=== PATIENT | male | born 1955 | race Caucasian/White ===

== ENCOUNTER 2016-09-24 08:44 | Emergency (ER) | payer MEDICAID ==
[2016-09-24] MEDS ORDERED: Sodium Chloride 0.9% 500 ML IV ONE (09:11)
[2016-09-24] MEDS ORDERED: Sodium Chloride 0.9% 1,000 ML ONE (09:39)
[2016-09-24 10:02] LABS: CHLORIDE 97 mmol/L (98-107); POTASSIUM 3.7 mmol/L (3.6-5.2); SODIUM 142 mmol/L (132-148)
[2016-09-24 10:03] LABS: BASO % 0.7 % (0.0-2.0); EOS # 0.2 K/uL (0.0-0.7); EOS % 2.3 % (0.0-4.0); HEMATOCRIT 40.6 % (35.0-51.0); LYMPH # 1.7 K/uL (1.0-4.3); MEAN CELL VOLUME 87.8 fL (80.0-94.0); MEAN CORPUSCULAR HEMOGLOBIN 29.7 pg (27.0-31.0); MEAN CORPUSCULAR HGB CONC 33.8 g/dL (33.0-37.0); MEAN PLATELET VOLUME 8.6 fL (7.2-11.7); MONO # 0.6 K/uL (0.0-0.8); MONO % 9.3 % (0.0-10.0); RED CELL DISTRIBUTION WIDTH 14.8 % (11.5-14.5); WHITE BLOOD COUNT 6.6 K/uL (4.8-10.8)
[2016-09-24 10:04] LABS: ALB/GLOB RATIO 1.2 (1.0-2.1); AST/SGOT 43 U/L (17-59); BILIRUBIN,TOTAL 0.6 mg/dL (0.2-1.3); CARBON DIOXIDE 31 mmol/L (22-30); GFR AFRICAN-AMERICAN > 60; TOTAL PROTEIN 7.2 g/dL (6.3-8.3)
[2016-09-24 10:05] LABS: ALKALINE PHOSPHATASE 52 U/L (38-126); ALT/SGPT 64 U/L (21-72); BLOOD UREA NITROGEN 11 mg/dL (9-20); CALCIUM 8.6 mg/dl (8.6-10.4); GLUCOSE,RANDOM 202 mg/dL (75-110)
--- NOTE | 2016-09-24 10:12 | C.PDOC ---
History Of Present Illness 60 year old patient with PMHx of hypertension, hyperlipidemia, and gastritis, is brought to the ED by ambulance complaining of lightheadedness and sensation of room spinning around that started this morning. Patient states the episode lasted several minutes, and then resolved. He admits to feeling lightheaded intermittently for the past several months, however this morning was the first time he had vertigo like symptoms. Patient is s/p recent admission at [facility] for a rectal bleeding, denies any current bleeding. Prior to his admission, patient was on antibiotics for a sinus infection, but has since stopped taking them. Patient denies headache, visual changes, chest pain, shortness of breath, extremity weakness, sensory changes, slurred speech, facial droop, gait changes , nasal congestion or sinus pressure. Time Seen by Provider: 09/24/16 08:49 Chief Complaint (Nursing): Dizziness/Lightheaded History Per: Patient History/Exam Limitations: no limitations Onset/Duration Of Symptoms: Hrs (this morning) Current Symptoms Are (Timing): Still Present Activity At Onset Of Symptoms: Walking Possible Causative Factor(s): Vertigo, Lightheaded W/Standing Fall Associated With With Symptoms: No Severity: Mild Past Medical History Reviewed: Historical Data, Nursing Documentation, Vital Signs Vital Signs: Last Vital Signs Temp 97.9 F 09/24/16 10:21 Pulse 87 09/24/16 10:21 Resp 18 09/24/16 10:21 BP 108/74 09/24/16 10:21 Pulse Ox 97 09/24/16 10:21 - Medical History PMH: Gastritis, HTN, Hyperlipidemia Surgical History: Endoscopy - [facility] Procedures DRAINAGE OF DESCENDING COLON, ENDO, DIAGN (09/17/16) Family History: States: No Known Family Hx - Social History Hx Tobacco Use: No Hx Alcohol Use: Yes Hx Substance Use: No - Immunization History Hx Tetanus Toxoid Vaccination: No Hx Influenza Vaccination: Yes Hx Pneumococcal Vaccination: No Review Of Systems Except As Marked, All Systems Reviewed And Found Negative. Constitutional: Negative for: Fever, Chills Eyes: Negative for: Vision Change ENT: Negative for: Nose Congestion, Other (sinus pressure) Cardiovascular: Positive for: Light Headedness. Negative for: Chest Pain, Palpitations Respiratory: Negative for: Cough, Shortness of Breath Gastrointestinal: Negative for: Nausea, Vomiting, Abdominal Pain, Diarrhea Neurological: Positive for: Dizziness. Negative for: Weakness, Numbness, Change in Speech, Confusion, Seizures, Altered Mental Status, Headache Physical Exam - Physical Exam Appears: Well, Non-toxic, No Acute Distress Skin: Warm, Dry, No Rash Head: Atraumatic, Normacephalic Eye(s): bilateral: Normal Inspection, PERRL, EOMI Ear(s): Bilateral: Normal Oral Mucosa: Moist Throat: Normal Neck: Normal, Normal ROM, Supple Chest: Symmetrical Cardiovascular: Rhythm Regular Respiratory: Normal Breath Sounds, No Rales, No Rhonchi, No Wheezing Gastrointestinal/Abdominal: Normal Exam, Bowel Sounds, Soft, No Tenderness, No Guarding, No Rebound Back: Normal Inspection Extremity: Normal ROM Extremity: Bilateral: Atraumatic, Normal Color And Temperature Neurological/Psych: Oriented x3, Normal Speech, Normal Cognition, Normal Cranial Nerves, No Cerebellar Signs, Normal Motor, Normal Sensation Gait: Steady ED Course And Treatment - Laboratory Results Result Diagrams: 09/24/16 09:49 09/24/16 09:49 O2 Sat by Pulse Oximetry: 96 (RA) Pulse Ox Interpretation: Normal Progress Note: Plan: Blood work, Urinalysis ordered and reviewed. Patient given IV NS bolus. -Reassess and disposition Reevaluation Time: 10:20 Reassessment Condition: Improved (Patient reassessed, is resting comfortably and currently aymptomatic. Blood work unremarkable, and patient is well appearing with normal vitals. Patient given Rx for meclizine, and he was instructed to follow up with ENT within 1 week, and PMD in 1-2 days. Patient understands he should return to ED if symptoms worsen.) Disposition Counseled Patient/Family Regarding: Studies Performed, Diagnosis, Need For Followup, Rx Given - Disposition Referrals: Shane Deras MD [Staff Provider] - Zuleyma Gresham MD [Staff Provider] - Disposition: HOME/ ROUTINE Disposition Time: 10:20 Condition: STABLE Additional Instructions: FOLLOW UP WITH DR DERAS TOMORROW SCHEDULED FOLLOW UP WITH YOUR DOCTOR IN 1-2 DAYS RETURN TO ER IF SYMPTOMS WORSEN Prescriptions: Meclizine [Meclizine*] 25 mg PO Q6 #25 tab Instructions: Benign Paroxysmal Positional Vertigo (ED) Forms: General Discharge Instructions Print Language: URDU - POA Present On Arrival: None - Clinical Impression Clinical Impression: Dizziness, Benign positional vertigo - Scribe Statement The provider has reviewed the documentation as recorded by the Scribe Rose Vargas Provider Attestation: All medical record entries made by the Scribe were at my direction and personally dictated by me. I have reviewed the chart and agree that the record accurately reflects my personal performance of the history, physical exam, medical decision making, and the department course for this patient. I have also personally directed, reviewed, and agree with the discharge instructions and disposition.
[2016-09-24 10:22] VITALS: BP 108/74; PULSE 87; RESP 18; TEMP 97.9
[2016-10-09 10:59] VITALS: O2SAT 96
== END 2016-09-24 11:02 | disposition home or self-care (01) ==
LOC: C.ER 08:44
DX: H81.10 Benign paroxysmal vertigo, unspecified ear (principal)

== ENCOUNTER 2017-02-14 12:54 | Emergency (ER) | payer MEDICAID ==
[2017-02-14 13:06] VITALS: RESP 18; TEMP 97.6; O2SAT 96
[2017-02-14 14:20] LABS: BASO % 0.6 % (0.0-2.0); EOS # 0.1 K/uL (0.0-0.7); EOS % 2.8 % (0.0-4.0); HEMOGLOBIN 13.7 g/dL (12.0-18.0); LYMPH # 1.9 K/uL (1.0-4.3); LYMPH % 37.2 % (20.0-40.0); MEAN CELL VOLUME 87.7 fL (80.0-94.0); MEAN CORPUSCULAR HGB CONC 33.1 g/dL (33.0-37.0); MEAN PLATELET VOLUME 8.9 fL (7.2-11.7); MONO # 0.5 K/uL (0.0-0.8); MONO % 10.5 % (0.0-10.0); NEUT # 2.4 K/uL (1.8-7.0); NEUT % 48.9 % (50.0-75.0); NRBC % 0.1 % (0.0-2.0); RBC 4.72 Mil/uL (4.40-5.90); RED CELL DISTRIBUTION WIDTH 14.9 % (11.5-14.5)
[2017-02-14 14:28] LABS: ALBUMIN 3.7 g/dL (3.5-5.0)
[2017-02-14 14:31] LABS: ALB/GLOB RATIO 1.3 (1.0-2.1); ALT/SGPT 40 U/L (21-72); AST/SGOT 33 U/L (17-59); BLOOD UREA NITROGEN 9 mg/dL (9-20); GFR AFRICAN-AMERICAN > 60; GFR NON-AFRICAN AMERICAN > 60; LIPASE 68 U/L (23-300)
[2017-02-14 14:32] LABS: CALCIUM 8.7 mg/dl (8.6-10.4)
[2017-02-14 15:18] LABS: SQUAMOUS EPITHIAL < 1 /hpf (0-5); URINE BILIRUBIN NEGATIVE (NEGATIVE); URINE BLOOD NEGATIVE (NEGATIVE); URINE CLARITY Clear (Clear); URINE COLOR Yellow (YELLOW); URINE GLUCOSE (UA) 1+ mg/dL (Normal); URINE LEUKOCYTE ESTERASE NEG Leu/uL (Negative); URINE NITRATE NEGATIVE (NEGATIVE); URINE PROTEIN NEGATIVE (NEGATIVE); URINE UROBILINOGEN NORMAL mg/dL (0.2-1.0)
--- NOTE | 2017-02-14 15:42 | RAD ---
HISTORY: SOB COMPARISON: None. TECHNIQUE: Chest, one view. FINDINGS: Examination limited by habitus. LUNGS: No focal consolidation. Please note that chest x-ray has limited sensitivity for the detection of pulmonary masses. PLEURA: No significant pleural effusion identified. No definite pneumothorax . CARDIOVASCULAR: Heart size appears top normal. Atherosclerotic calcifications of the aorta. OSSEOUS STRUCTURES: Degenerative changes of the spine. VISUALIZED UPPER ABDOMEN: Unremarkable. OTHER FINDINGS: None. IMPRESSION: No focal consolidation, significant pleural effusion, or definite pneumothorax identified.
[2017-02-14 16:04] LABS: PROTHROMBIN TIME 11.3 SECONDS (9.7-12.2)
--- NOTE | 2017-02-14 16:38 | US ---
HISTORY: RUQ Pain, ascites? COMPARISON: CT of the abdomen and pelvis with contrast performed 08/13/13 TECHNIQUE: Sonographic evaluation of the abdomen. FINDINGS: Examination limited by bowel gas LIVER: Not well-visualized. Measures approximately 22 cm in sagittal dimension. Echogenic liver may be seen in setting of hepatic parenchymal disease or fatty infiltration. No focal hepatic mass identified. The main portal vein appears patent with normal directional flow. No intrahepatic bile duct dilatation. GALLBLADDER: No gallstones. No gallbladder wall thickening. Negative sonographic Zayas's sign as assessed by the mri special procedures technologist. COMMON BILE DUCT: Measures 6 mm. PANCREAS: Not well visualized. RIGHT KIDNEY: Measures 13.1 x 6.0 x 6.3cm. No obstructing calculus or hydronephrosis identified. LEFT KIDNEY: Measures 13.1 x 6.0 x 6.3 cm. No obstructing calculus or hydronephrosis identified. 1.3 x 0.7 x 1.4 cm anechoic avascular left renal lesion compatible with a cyst. SPLEEN: Measures approximately 12.9 cm. AORTA: Not well-visualized. IVC: Not well-visualized. OTHER FINDINGS: None. IMPRESSION: Examination limited by bowel gas. Hepatomegaly. Echogenic liver may be seen in setting of hepatic parenchymal disease or fatty infiltration. 1.3 x 0.7 x 1.4 cm anechoic avascular left renal lesion compatible with a cyst.
--- NOTE | 2017-02-14 16:51 | C.PDOC ---
History Of Present Illness 61 y/o male presents to the ED with complaints RUQ pain, increasing abdominal size and difficulty breathing for the past couple days. Pt states laying down makes symptoms worse. He also reports bilateral leg swelling. Denies fever, chills, vomiting, diarrhea, chest pain or any other complaints. Time Seen by Provider: 02/14/17 14:13 Chief Complaint (Nursing): Abdominal Pain History Per: Patient History/Exam Limitations: no limitations Onset/Duration Of Symptoms: Days Current Symptoms Are (Timing): Still Present Severity: Moderate Location Of Pain/Discomfort: RUQ Radiation Of Pain To:: None Quality Of Discomfort: "Pain" Associated Symptoms: denies: Fever, Chills, Nausea, Vomiting, Diarrhea, Chest Pain Exacerbating Factors: Other (laying down) Alleviating Factors: None Recent travel outside of the [place]: No Past Medical History Reviewed: Historical Data, Nursing Documentation, Vital Signs Vital Signs: Last Vital Signs Temp 97.6 F 02/14/17 13:02 Pulse 90 02/14/17 18:49 Resp 18 02/14/17 18:49 BP 153/86 H 02/14/17 18:49 Pulse Ox 96 02/14/17 18:54 - Medical History PMH: Gastritis, HTN, Hyperlipidemia Surgical History: Endoscopy - [facility] Procedures DRAINAGE OF DESCENDING COLON, ENDO, DIAGN (09/17/16) Family History: States: Unknown Family Hx - Social History Hx Tobacco Use: No Hx Alcohol Use: Yes Hx Substance Use: No - Immunization History Hx Tetanus Toxoid Vaccination: No Hx Influenza Vaccination: No Hx Pneumococcal Vaccination: No Review Of Systems Except As Marked, All Systems Reviewed And Found Negative. Constitutional: Negative for: Fever, Chills Cardiovascular: Negative for: Chest Pain Respiratory: Positive for: Shortness of Breath Gastrointestinal: Positive for: Abdominal Pain, Other (increasing abdominal girth). Negative for: Vomiting, Diarrhea Physical Exam - Physical Exam Appears: Non-toxic, No Acute Distress, Other (obese) Skin: Warm, Dry, No Rash Head: Atraumatic, Normacephalic Neck: Normal, Normal ROM, Supple Chest: Symmetrical Cardiovascular: Rhythm Regular, No Murmur Respiratory: Normal Breath Sounds, No Accessory Muscle Use, No Rales, No Rhonchi , No Wheezing Gastrointestinal/Abdominal: Soft, Tenderness (RUQ), No Guarding, No Rebound, Other (questionable abdominal distention and ascites) Extremity: Normal ROM, No Calf Tenderness, Capillary Refill (<2 seconds), Swelling (bilateral lower leg swelling) Pulses: Left Dorsalis Pedis: Normal, Right Dorsalis Pedis: Normal Neurological/Psych: Oriented x3, Normal Speech, Normal Cognition, Normal Motor, Normal Sensation ED Course And Treatment - Laboratory Results Result Diagrams: 02/14/17 14:17 02/14/17 14:17 O2 Sat by Pulse Oximetry: 96 (room air) Pulse Ox Interpretation: Normal - Other Rad CXR X-Ray: Viewed By Me, Read By Radiologist Interpretation: Accession No. : [id number]. Patient Name / ID : NICOLE LOCKHART / [id number]. Exam Date : 02/14/2017 15:25:23 ( Approved ). Study Comment : Sex / Age : M / 61Y. Creator : Elizabeth So MD. Dictator : Elizabeth So MD. Industrial Chemist : Grain Trimmer : Elizabeth So MD. Approver2 : Report Date : 02/14/2017 15:40:38. My Comment : . HISTORY: SOB. COMPARISON: None. TECHNIQUE: Chest, one view. FINDINGS : Examination limited by habitus. LUNGS: No focal consolidation. Please note that chest x-ray has limited sensitivity for the detection of pulmonary masses. PLEURA: No significant pleural effusion identified. No definite pneumothorax . CARDIOVASCULAR: Heart size appears top normal. Atherosclerotic calcifications of the aorta. OSSEOUS STRUCTURES: Degenerative changes of the spine. VISUALIZED UPPER ABDOMEN: Unremarkable. OTHER FINDINGS: None. IMPRESSION: No focal consolidation, significant pleural effusion, or definite pneumothorax identified. - CT Scan/US US abdomen Other Rad Studies (CT/US): Read By Radiologist, Radiology Report Reviewed CT/US Interpretation: Accession No. : [id number]. Patient Name / ID : NICOLE LOCKHART / [id number]. Exam Date : 02/14/2017 15:47:23 ( Approved ). Study Comment : Sex / Age : M / 61Y. Creator : Elizabeth So MD. Dictator : Elizabeth So MD. Industrial Chemist : Grain Trimmer : Elizabeth So MD. Approver2 : Report Date : 02/14/2017 16:36:32. My Comment : . HISTORY: RUQ Pain, ascites? COMPARISON: CT of the abdomen and pelvis with contrast performed 08/13/13. TECHNIQUE: Sonographic evaluation of the abdomen. FINDINGS: Examination limited by bowel gas. LIVER: Not well- visualized. Measures approximately 22 cm in sagittal dimension. Echogenic liver may be seen in setting of hepatic parenchymal disease or fatty infiltration. No focal hepatic mass identified. The main portal vein appears patent with normal directional flow. No intrahepatic bile duct dilatation. GALLBLADDER: No gallstones. No gallbladder wall thickening. Negative sonographic Zayas's sign as assessed by the studio set up worker. COMMON BILE DUCT: Measures 6 mm. PANCREAS: Not well visualized. RIGHT KIDNEY: Measures 13.1 x 6.0 x 6.3cm. No obstructing calculus or hydronephrosis identified. LEFT KIDNEY : Measures 13.1 x 6.0 x 6.3 cm. No obstructing calculus or hydronephrosis identified. 1.3 x 0.7 x 1.4 cm anechoic avascular left renal lesion compatible with a cyst. SPLEEN: Measures approximately 12.9 cm. AORTA: Not well- visualized. IVC: Not well-visualized. OTHER FINDINGS: None. IMPRESSION: Examination limited by bowel gas. Hepatomegaly. Echogenic liver may be seen in setting of hepatic parenchymal disease or fatty infiltration. 1.3 x 0.7 x 1.4 cm anechoic avascular left renal lesion compatible with a cyst. CT abdomen Other Rad Studies (CT/US): Read By Radiologist, Radiology Report Reviewed CT/US Interpretation: Accession No. : [id number]. Patient Name / ID : NICOLE LOCKHART / [id number]. Exam Date : 02/14/2017 18:01:41 ( Approved ). Study Comment : Sex / Age : M / 61Y. Creator : Elizabeth So MD. Dictator : Elizabeth So MD. Industrial Chemist : Grain Trimmer : Elizabeth So MD. Approver2 : Report Date : 02/14/2017 18:23:50. My Comment : . PROCEDURE: CT Abdomen and Pelvis without Oral or IV contrast. HISTORY: right flank pain. COMPARISON: Abdominal ultrasound performed 02/14/17, CT of the abdomen and pelvis with contrast performed 08/13/13. TECHNIQUE: Contiguous axial images of the abdomen and pelvis. No oral or IV contrast administered. Coronal and Sagittal reformats generated and reviewed. Radiation dose: Total exam DLP = 1357.45 MGy-cm. This CT exam was performed using one or more of the following dose reduction techniques: Automated exposure control, adjustment of the mA and/or kV according to patient size, and/or use of iterative reconstruction technique. FINDINGS: There is limited evaluation of the solid organs without the administration of IV contrast. LOWER THORAX: No visible consolidation, pleural effusion, or pneumothorax. LIVER: Hepatomegaly. Hypoattenuation of the liver compatible with hepatic steatosis. GALLBLADDER AND BILE DUCTS: Decompressed gallbladder. PANCREAS: Unremarkable unenhanced appearance. SPLEEN: Unremarkable unenhanced appearance. ADRENALS: Unremarkable unenhanced appearance. KIDNEYS AND URETERS: No hydronephrosis or obstructing renal calculus. BLADDER: The urinary bladder appears unremarkable. REPRODUCTIVE: The prostate gland measures approximately 3.6 x 4.1 cm. APPENDIX: The appendix appears within normal limits of caliber. No secondary signs of acute appendicitis. BOWEL: The stomach is nondistended. Lack of oral contrast limits evaluation for bowel pathology. The bowel loops appear within normal limits of caliber without evidence of intestinal obstruction. PERITONEUM: No significant free fluid. No definite free air. LYMPH NODES: No bulky lymphadenopathy identified. VASCULATURE: Infrarenal abdominal aortic aneurysm measures approximately 3.4 cm in AP dimension. BONES : Degenerative changes of the spine. Vacuum disc phenomenon at L4-L5 and L5- S1. OTHER FINDINGS: None. IMPRESSION: Hepatomegaly. Hepatic steatosis. Infrarenal abdominal aortic aneurysm measures approximately 3.4 cm in AP dimension. Progress Note: Plan: EKG, labs, CXR, UA, US abd, IV fluids. case was d/w patient 's PMD who instructed to d/c patient home with aluminum welder and GI follow up. She also wants patient to follow up in her office. patient feels comfortable going home, asked to give Rx for Flonase for nasal congestion. Disposition - Disposition Referrals: Zuleyma Gresham MD [Staff Provider] - Disposition: HOME/ ROUTINE Disposition Time: 18:52 Condition: STABLE Additional Instructions: Follow up with PMD, Towing Pilot and Wig Dresser within 1-2 days. Return to ED if feel worse. Prescriptions: Dicyclomine [Bentyl] 20 mg PO TID #30 tab Fluticasone Nasal [Flonase] 1 spr NS BID #1 spr traMADol [Ultram] 50 mg PO Q6 #20 tab Instructions: Abdominal Pain (ED) - Clinical Impression Clinical Impression: Abdominal pain - PA / VP PUBLIC RELATIONS / Resident Statement MD/DO has reviewed & agrees with the documentation as recorded. - Scribe Statement The provider has reviewed the documentation as recorded by the Josephineibgisela Dunn All medical record entries made by the Trang were at my direction and personally dictated by me. I have reviewed the chart and agree that the record accurately reflects my personal performance of the history, physical exam, medical decision making, and the department course for this patient. I have also personally directed, reviewed, and agree with the discharge instructions and disposition.
[2017-02-14 17:00] LABS: AMYLASE 92 U/L (30-110); MAGNESIUM 1.7 mg/dL (1.6-2.3)
[2017-02-14 17:09] LABS: B-TYPE NATRIURETIC PEPTIDE 30.6 pg/mL (0-900); CK-MB 0.94 ng/mL (0.0-3.38)
--- NOTE | 2017-02-14 18:25 | CT ---
PROCEDURE: CT Abdomen and Pelvis without Oral or IV contrast. HISTORY: right flank pain COMPARISON: Abdominal ultrasound performed 02/14/17, CT of the abdomen and pelvis with contrast performed 08/13/13 TECHNIQUE: Contiguous axial images of the abdomen and pelvis. No oral or IV contrast administered. Coronal and Sagittal reformats generated and reviewed. Radiation dose: Total exam DLP = 1357.45 MGy-cm. This CT exam was performed using one or more of the following dose reduction techniques: Automated exposure control, adjustment of the mA and/or kV according to patient size, and/or use of iterative reconstruction technique. FINDINGS: There is limited evaluation of the solid organs without the administration of IV contrast. LOWER THORAX: No visible consolidation, pleural effusion, or pneumothorax. LIVER: Hepatomegaly. Hypoattenuation of the liver compatible with hepatic steatosis. GALLBLADDER AND BILE DUCTS: Decompressed gallbladder. PANCREAS: Unremarkable unenhanced appearance. SPLEEN: Unremarkable unenhanced appearance. ADRENALS: Unremarkable unenhanced appearance. KIDNEYS AND URETERS: No hydronephrosis or obstructing renal calculus. BLADDER: The urinary bladder appears unremarkable. REPRODUCTIVE: The prostate gland measures approximately 3.6 x 4.1 cm. APPENDIX: The appendix appears within normal limits of caliber. No secondary signs of acute appendicitis. BOWEL: The stomach is nondistended. Lack of oral contrast limits evaluation for bowel pathology. The bowel loops appear within normal limits of caliber without evidence of intestinal obstruction. PERITONEUM: No significant free fluid. No definite free air. LYMPH NODES: No bulky lymphadenopathy identified. VASCULATURE: Infrarenal abdominal aortic aneurysm measures approximately 3.4 cm in AP dimension. BONES: Degenerative changes of the spine. Vacuum disc phenomenon at L4-L5 and L5-S1. OTHER FINDINGS: None. IMPRESSION: Hepatomegaly. Hepatic steatosis. Infrarenal abdominal aortic aneurysm measures approximately 3.4 cm in AP dimension.
[2017-02-14 18:50] VITALS: BP 153/86; PULSE 90
--- NOTE | 2017-02-16 09:06 | CARD ---
APPROVED REPORT EKG Measurement Heart [id number] <Conclusion> Normal sinus rhythm Minimal voltage criteria for LVH, may be normal variant Borderline ECG
== END 2017-02-14 19:06 | disposition home or self-care (01) ==
LOC: C.ER 12:54
DX: R10.9 Unspecified abdominal pain (principal); I10 Essential (primary) hypertension; E78.5 Hyperlipidemia, unspecified; Z87.891 Personal history of nicotine dependence

== ENCOUNTER 2017-02-18 08:06 | Emergency (ER) | payer MEDICAID ==
[2017-02-18 08:13] VITALS: BMI 35.4
[2017-02-18 08:15] VITALS: RESP 20
[2017-02-18] MEDS ORDERED: Sodium Chloride 0.9% 500 ML IV ONE (08:28)
[2017-02-18] MEDS ORDERED: Sodium Chloride 0.9% 1,000 ML ONE (08:38)
--- NOTE | 2017-02-18 08:47 | RAD ---
PROCEDURE: CHEST RADIOGRAPH, 1 VIEW HISTORY: Abdominal pain COMPARISON: None available. FINDINGS: LUNGS: Mild venous congestion. Right hilar prominence. Patchy increased markings at the left lung base. PLEURA: No pneumothorax or pleural fluid seen. CARDIOVASCULAR: Normal. OSSEOUS STRUCTURES: No significant abnormalities. VISUALIZED UPPER ABDOMEN: Normal. OTHER FINDINGS: None. IMPRESSION: Mild venous congestion. Right hilar prominence. Patchy increased markings at the left lung base.
--- NOTE | 2017-02-18 08:57 | C.PDOC ---
History Of Present Illness 61 y/o male, with PMHx of HTN, hyperlipidemia, presents to the ED for evaluation of persistent RUQ abdominal pain for the last week. Pt was seen here last week, with negative CT scan, and ultrasound study. Notes that he has an appointment with agriculturist on 02/21/17, but states his pain worsened which prompted ED visit today. Otherwise, denies any n/v/d, back pain, fever, or chills. Time Seen by Provider: 02/18/17 08:17 Chief Complaint (Nursing): Abdominal Pain History Per: Patient History/Exam Limitations: no limitations Onset/Duration Of Symptoms: Days (1 week) Current Symptoms Are (Timing): Still Present Location Of Pain/Discomfort: RUQ Radiation Of Pain To:: None Quality Of Discomfort: "Pain" Associated Symptoms: denies: Fever, Chills, Nausea, Vomiting, Diarrhea, Loss Of Appetite, Back Pain, Chest Pain, Constipation, Urinary Symptoms Exacerbating Factors: None Alleviating Factors: None Recent travel outside of the [place]: No Additional History Per: Patient Past Medical History Reviewed: Historical Data, Nursing Documentation, Vital Signs Vital Signs: Last Vital Signs Temp 98.1 F 02/18/17 12:29 Pulse 86 02/18/17 12:29 Resp 20 02/18/17 12:29 BP 137/86 02/18/17 12:29 Pulse Ox 96 02/18/17 14:23 - Medical History PMH: Gastritis, HTN, Hyperlipidemia Denies: Chronic Kidney Disease Surgical History: Endoscopy - [facility] Procedures DRAINAGE OF DESCENDING COLON, ENDO, DIAGN (09/17/16) Family History: States: Unknown Family Hx - Social History Hx Tobacco Use: No Hx Alcohol Use: Yes Hx Substance Use: No - Immunization History Hx Tetanus Toxoid Vaccination: No Hx Influenza Vaccination: No Hx Pneumococcal Vaccination: No Review Of Systems Except As Marked, All Systems Reviewed And Found Negative. Constitutional: Negative for: Fever, Chills Gastrointestinal: Positive for: Abdominal Pain (RUQ). Negative for: Nausea, Vomiting, Diarrhea Genitourinary: Negative for: Dysuria, Frequency, Hematuria Musculoskeletal: Negative for: Back Pain Skin: Negative for: Rash Physical Exam - Physical Exam Appears: Non-toxic, No Acute Distress Skin: Normal Color, Warm, Dry Head: Atraumatic, Normacephalic Neck: Supple Cardiovascular: Rhythm Regular, No Murmur Respiratory: Normal Breath Sounds, No Rales, No Rhonchi, No Wheezing Gastrointestinal/Abdominal: Soft, Tenderness (mild RUQ), Distention (mild), No Guarding, No Rebound Extremity: Bilateral: Atraumatic Neurological/Psych: Oriented x3, Normal Speech ED Course And Treatment - Laboratory Results Result Diagrams: 02/18/17 09:02 02/18/17 09:02 O2 Sat by Pulse Oximetry: 96 (RA) Pulse Ox Interpretation: Normal - CT Scan/US Abd & pelvis CT Other Rad Studies (CT/US): Read By Radiologist, Radiology Report Reviewed CT/US Interpretation: FINDINGS: LOWER THORAX: Unremarkable. LIVER: Hepatic steatosis. No focal masses. No intrahepatic bile duct dilatation or perihepatic ascites. GALLBLADDER AND BILE DUCTS: Unremarkable. PANCREAS: Unremarkable. No gross lesion or ductal dilatation. SPLEEN: Top-normal spleen. Orthogonal measurements 7.4 x 12.8 cm. ADRENALS: Unremarkable. No mass. KIDNEYS AND URETERS: Unremarkable. No hydronephrosis. No solid mass. VASCULATURE: Unremarkable. No aortic aneurysm. Atherosclerotic disease identified in a non aneurysmal proximal abdominal aorta. BOWEL: Diverticulosis without an acute inflammatory component or other associated pathologic process. APPENDIX: Normal appendix. PERITONEUM: Unremarkable. No free fluid. No free air. LYMPH NODES: Unremarkable. No enlarged lymph nodes. BLADDER: Unremarkable. REPRODUCTIVE: Unremarkable. BONES: No acute fracture. OTHER FINDINGS: None. IMPRESSION: No significant or acute findings to account for/ related to the clinical presentation. Additional benign and/or incidental findings described above. Progress Note: EKG, CXR, blood work, urinalysis ordered and reviewed. Pt was given Toradol, and IV fluids. Medical Decision Making Medical Decision Making: ekg nsr 89 vs ectopic atrial [address] twave changes nromal intervals. Abd & pelvis CT scan shows no interval changes. Spoke with Dr. Colindres who suggest outpatient follow up. Pt instructed to keep GI appointment for next week. pt sleeping innad, on reassessment. Disposition - Disposition Disposition: HOME/ ROUTINE Disposition Time: 02:00 Condition: GOOD Additional Instructions: please follow up with your doctor. return to er with worsening symptoms or concerns. please see specialsit. that you have scheduled Instructions: Acute Abdominal Pain (ED) Forms: [employer] (Burundian) - Clinical Impression Clinical Impression: Abdominal pain - Scribe Statement The provider has reviewed the documentation as recorded by the Scribe Klaus Vargas All medical record entries made by the Scribe were at my direction and personally dictated by me. I have reviewed the chart and agree that the record accurately reflects my personal performance of the history, physical exam, medical decision making, and the department course for this patient. I have also personally directed, reviewed, and agree with the discharge instructions and disposition.
[2017-02-18 09:08] LABS: BASO # 0.1 K/uL (0.0-0.2); BASO % 0.8 % (0.0-2.0); EOS # 0.2 K/uL (0.0-0.7); EOS % 2.5 % (0.0-4.0); HEMATOCRIT 41.3 % (35.0-51.0); LYMPH # 1.7 K/uL (1.0-4.3); LYMPH % 25.1 % (20.0-40.0); MEAN CELL VOLUME 88.5 fL (80.0-94.0); MEAN CORPUSCULAR HEMOGLOBIN 28.6 pg (27.0-31.0); MEAN CORPUSCULAR HGB CONC 32.3 g/dL (33.0-37.0); MEAN PLATELET VOLUME 9.2 fL (7.2-11.7); MONO # 0.6 K/uL (0.0-0.8); MONO % 8.7 % (0.0-10.0); NRBC % 0.1 % (0.0-2.0); RED CELL DISTRIBUTION WIDTH 15.3 % (11.5-14.5); WHITE BLOOD COUNT 6.9 K/uL (4.8-10.8)
[2017-02-18 09:13] LABS: CHLORIDE 97 mmol/L (98-107)
[2017-02-18 09:14] LABS: SODIUM 139 mmol/L (132-148)
[2017-02-18 09:16] LABS: ALB/GLOB RATIO 1.3 (1.0-2.1); ALKALINE PHOSPHATASE 59 U/L (38-126); AST/SGOT 55 U/L (17-59); BILIRUBIN,TOTAL 0.8 mg/dL (0.2-1.3); BLOOD UREA NITROGEN 11 mg/dL (9-20); CARBON DIOXIDE 28 mmol/L (22-30); GFR AFRICAN-AMERICAN > 60; TOTAL PROTEIN 6.9 g/dL (6.3-8.3)
[2017-02-18 09:17] LABS: ALT/SGPT 50 U/L (21-72); CALCIUM 8.6 mg/dl (8.6-10.4); GLUCOSE,RANDOM 205 mg/dL (75-110); RBC URINE 3 /hpf (0-3); URINE BILIRUBIN NEGATIVE (NEGATIVE); URINE BLOOD 1+ (NEGATIVE); URINE COLOR Yellow (YELLOW); URINE GLUCOSE (UA) NORMAL (Normal); URINE KETONE NEGATIVE (NEGATIVE); URINE LEUKOCYTE ESTERASE NEG Leu/uL (Negative); URINE PROTEIN NEGATIVE (NEGATIVE); URINE UROBILINOGEN NORMAL mg/dL (0.2-1.0); WBC URINE < 1 /hpf (0-5)
[2017-02-18] MEDS ORDERED: Iohexol 240 (50 ml) PO STA (09:27)
[2017-02-18] MEDS ORDERED: Iohexol 240 (50 ml) ONE (09:33)
[2017-02-18] MEDS ORDERED: Iodixanol 320 MG/ML 100 ML BOTTLE IV ONE (10:50)
--- NOTE | 2017-02-18 12:23 | CT ---
PROCEDURE: CT Abdomen and Pelvis with contrast HISTORY: abd pain COMPARISON: None. TECHNIQUE: Contrast dose: 100 cc Omnipaque 350 Radiation dose: Total exam DLP = 1340.71 mGy-cm. This CT exam was performed using one or more of the following dose reduction techniques: Automated exposure control, adjustment of the mA and/or kV according to patient size, and/or use of iterative reconstruction technique. FINDINGS: LOWER THORAX: Unremarkable. LIVER: Hepatic steatosis. No focal masses. No intrahepatic bile duct dilatation or perihepatic ascites. GALLBLADDER AND BILE DUCTS: Unremarkable. PANCREAS: Unremarkable. No gross lesion or ductal dilatation. SPLEEN: Top-normal spleen. Orthogonal measurements 7.4 x 12.8 cm ADRENALS: Unremarkable. No mass. KIDNEYS AND URETERS: Unremarkable. No hydronephrosis. No solid mass. VASCULATURE: Unremarkable. No aortic aneurysm. Atherosclerotic disease identified in a non aneurysmal proximal abdominal aorta. BOWEL: Diverticulosis without an acute inflammatory component or other associated pathologic process. APPENDIX: Normal appendix. PERITONEUM: Unremarkable. No free fluid. No free air. LYMPH NODES: Unremarkable. No enlarged lymph nodes. BLADDER: Unremarkable. REPRODUCTIVE: Unremarkable. BONES: No acute fracture. OTHER FINDINGS: None. IMPRESSION: No significant or acute findings to account for/ related to the clinical presentation. Additional benign and/or incidental findings described above.
[2017-02-18 12:30] VITALS: BP 137/86; PULSE 86; TEMP 98.1
[2017-02-18 14:23] VITALS: O2SAT 96
--- NOTE | 2017-02-21 15:05 | CARD ---
APPROVED REPORT EKG Measurement Heart [id number] CT [id number] <Conclusion> Suspect arm lead reversal, interpretation assumes no reversal Unusual P axis, possible ectopic atrial rhythm Right superior axis deviation Pulmonary disease pattern Abnormal ECG
== END 2017-02-18 12:38 | disposition home or self-care (01) ==
LOC: C.ER 08:06
DX: R10.11 Right upper quadrant pain (principal); E78.5 Hyperlipidemia, unspecified; I10 Essential (primary) hypertension
CPT/HCPCS: 71010; 74177; 80053; 81001; 83690; 83880; 84484; 85025; 85610; 85730; 93005; 96361; 96374; 99285; J1885; J7040; Q9966; Q9967

== ENCOUNTER 2017-08-01 16:52 | Emergency (ER) | payer MEDICAID ==
[2017-08-01 16:52] VITALS: BMI 35.4
[2017-08-01 17:08] VITALS: RESP 18
--- NOTE | 2017-08-01 18:24 | C.PDOC ---
History Of Present Illness 61 year old male presents to the ED for evaluation of mild cervical tapezius discomfort which has been intermittent for around 1 week. He finds transient relief with Motrin. Otherwise, he denies fever, chills, chest pain, palpitations , nausea, vomiting, extremity numbness/weakness. Time Seen by Provider: 08/01/17 17:16 Chief Complaint (Nursing): Weakness/Neurological Deficit History Per: Patient History/Exam Limitations: no limitations Onset/Duration Of Symptoms: Intermittent Episodes (1 week) Current Symptoms Are (Timing): Still Present Additional History Per: Patient Past Medical History Reviewed: Historical Data, Nursing Documentation, Vital Signs Vital Signs: Last Vital Signs Temp 98.1 F 08/01/17 18:53 Pulse 90 08/01/17 18:53 Resp 18 08/01/17 18:53 BP 134/79 08/01/17 18:53 Pulse Ox 95 08/01/17 20:06 - Medical History PMH: Gastritis, HTN, Hyperlipidemia Denies: Chronic Kidney Disease Surgical History: Endoscopy - [facility] Procedures DRAINAGE OF DESCENDING COLON, ENDO, DIAGN (09/17/16) Family History: States: Unknown Family Hx - Social History Hx Tobacco Use: No Hx Alcohol Use: Yes Hx Substance Use: No - Immunization History Hx Tetanus Toxoid Vaccination: No Hx Influenza Vaccination: No Hx Pneumococcal Vaccination: No Review Of Systems Constitutional: Negative for: Fever, Chills Cardiovascular: Negative for: Chest Pain, Palpitations Gastrointestinal: Negative for: Nausea, Vomiting Musculoskeletal: Positive for: Other (left cervical trapezius pain ) Neurological: Negative for: Weakness, Numbness Physical Exam - Physical Exam Appears: Non-toxic, No Acute Distress, Other (obese) Skin: Normal Color, Warm, Dry Head: Atraumatic, Normacephalic Eye(s): bilateral: Normal Inspection Ear(s): Bilateral: Normal Nose: Normal, No Discharge Oral Mucosa: Moist Throat: Normal, No Erythema, No Exudate Neck: Normal ROM, Supple, Other (mild tenderness to left trapezius neck ) Chest: Symmetrical, No Deformity, No Tenderness Cardiovascular: Rhythm Regular, No Murmur Respiratory: Normal Breath Sounds, No Rales, No Rhonchi, No Wheezing Extremity: Normal ROM, Capillary Refill (less than 2 seconds ) Neurological/Psych: Oriented x3, Normal Speech, Normal Cognition Gait: Steady ED Course And Treatment O2 Sat by Pulse Oximetry: 95 (on RA) Pulse Ox Interpretation: Normal Progress Note: EKG ordered and reviewed. Tylenol PO administered. Medical Decision Making Medical Decision Making: mild L cervical strain, no neurological signs. Educated and reassured. Disposition Doctor Will See Patient In The: Office Counseled Patient/Family Regarding: Studies Performed, Diagnosis - Disposition Referrals: Zuleyma Gresham MD [Staff Provider] - Disposition: HOME/ ROUTINE Disposition Time: 18:24 Condition: GOOD Additional Instructions: tylenol or motrin as needed for L neck muscular discomfort ice packs 1/2 hour per hour. Avoid heat therapies/hot showers- makes muscle strain worse Follow-up with Dr. Mancini as needed. Instructions: Cervical Strain (DC) Forms: [employer] (Eritrean) - Clinical Impression Clinical Impression: Cervical strain - Scribe Statement The provider has reviewed the documentation as recorded by the Scribe (Ashli Vargas) Provider Attestation: All medical record entries made by the Scribe were at my direction and personally dictated by me. I have reviewed the chart and agree that the record accurately reflects my personal performance of the history, physical exam, medical decision making, and the department course for this patient. I have also personally directed, reviewed, and agree with the discharge instructions and disposition.
[2017-08-01 18:54] VITALS: BP 134/79; PULSE 90; TEMP 98.1
[2017-08-01 20:05] VITALS: O2SAT 95
--- NOTE | 2017-08-03 23:09 | CARD ---
APPROVED REPORT EKG Measurement Heart [id number] <Conclusion> Normal sinus rhythm Left axis deviation Moderate voltage criteria for LVH, may be normal variant Abnormal ECG
== END 2017-08-01 18:54 | disposition home or self-care (01) ==
LOC: C.ER 16:52
DX: S16.1XXA Strain of muscle, fascia and tendon at neck level, initial encounter (principal); X58.XXXA Exposure to other specified factors, initial encounter; Y92.9 Unspecified place or not applicable

== ENCOUNTER 2017-09-04 05:32 | Observation (INO) | payer MEDICAID ==
[2017-09-04 05:33] VITALS: BMI 35.4
[2017-09-04] MEDS ORDERED: Albuterol-Ipratrop 3 mg / 0.5 (3 ml) UD INH STA (06:00)
[2017-09-04] MEDS ORDERED: Albuterol-Ipratrop 3 mg / 0.5 (3 ml) UD ONE ×3 (06:04→22:30)
--- NOTE | 2017-09-04 06:36 | C.PDOC ---
History Of Present Illness patient with worsening fever, chills, chest congestion, productive cough, over the last 3-4 days. Speaking in 5-6 word sentences. Tolerating po no chest pain Time Seen by Provider: 09/04/17 06:35 Chief Complaint (Nursing): Fever History Per: Patient History/Exam Limitations: no limitations Onset/Duration Of Symptoms: Days (3) Current Symptoms Are (Timing): Still Present Location Of Pain: Diffuse Myalgias, Headache, Other Sick Contacts (Context): None Associated Symptoms: Fever, Chills, Cough, Sputum, Nasal Congestion Ear Symptoms: Bilateral: None Severity: Moderate Pain Scale Rating Of: 4 Recent travel outside of the [place]: No Additional History Per: Patient Past Medical History Reviewed: Historical Data, Nursing Documentation, Vital Signs Vital Signs: Last Vital Signs Temp 101.8 F H 09/04/17 05:54 Pulse 96 H 09/04/17 06:05 Resp 20 09/04/17 05:54 BP 110/75 09/04/17 05:54 Pulse Ox 98 09/04/17 06:35 - Medical History PMH: Gastritis, HTN, Hyperlipidemia Denies: Chronic Kidney Disease Surgical History: Endoscopy - [facility] Procedures DRAINAGE OF DESCENDING COLON, ENDO, DIAGN (09/17/16) Family History: States: No Known Family Hx - Social History Hx Tobacco Use: No Hx Alcohol Use: Yes Hx Substance Use: No - Immunization History Hx Tetanus Toxoid Vaccination: No Hx Influenza Vaccination: No Hx Pneumococcal Vaccination: No Review Of Systems Constitutional: Positive for: Fever, Chills, Sweats ENT: Positive for: Nose Congestion. Negative for: Ear Pain, Throat Pain Cardiovascular: Negative for: Chest Pain, Palpitations Respiratory: Positive for: Cough, Shortness of Breath, Wheezing Gastrointestinal: Negative for: Nausea, Vomiting Musculoskeletal: Negative for: Back Pain Skin: Negative for: Rash Neurological: Negative for: Weakness Psych: Negative for: Anxiety Physical Exam - Physical Exam Appears: Non-toxic Skin: Warm, Dry Head: Normacephalic Eye(s): bilateral: Normal Inspection Nose: Discharge (clear) Oral Mucosa: Moist Throat: No Erythema Neck: Supple Chest: Symmetrical Cardiovascular: Rhythm Regular Respiratory: No Rales, Rhonchi, Wheezing (few) Gastrointestinal/Abdominal: Soft, No Tenderness, No Distention Back: No CVA Tenderness Extremity: Normal ROM Extremity: Bilateral: Atraumatic Neurological/Psych: Oriented x3 Gait: Steady ED Course And Treatment O2 Sat by Pulse Oximetry: 98 Disposition Counseled Patient/Family Regarding: Studies Performed, Diagnosis - Disposition Disposition Time: 06:35 Condition: FAIR Forms: [employer] (Swedish) - Clinical Impression Clinical Impression: Fever, Influenza-like illness Physician Patient Turnover Patient Signed Over To: Alexia Desir Handoff Comments: pending labs , re evaluation and disposition
[2017-09-04] MEDS ORDERED: Sodium Chloride 0.9% 1,000 ML IV ONE (06:38)
[2017-09-04 06:54] LABS: VENOUS BLOOD GAS BASE EXCESS 2.4 mmol/L (0.0-2.0); VENOUS BLOOD GAS PCO2 51 mmHg (40-60); VENOUS BLOOD GAS PO2 37 mm/Hg (30-55); VENOUS BLOOD PH 7.36 (7.32-7.43)
[2017-09-04] MEDS: Albuterol-Ipratrop 3 mg / 0.5 (3 ml) UD IH SCH ×3 (06:55→07:32)
[2017-09-04 07:00] LABS: BASO % 1.3 % (0.0-2.0); EOS # 0.2 K/uL (0.0-0.7); EOS % 5.7 % (0.0-4.0); HEMOGLOBIN 13.9 g/dL (12.0-18.0); LYMPH # 1.3 K/uL (1.0-4.3); LYMPH % 34.3 % (20.0-40.0); MEAN CELL VOLUME 88.6 fL (80.0-94.0); MEAN CORPUSCULAR HEMOGLOBIN 29.2 pg (27.0-31.0); MEAN CORPUSCULAR HGB CONC 32.9 g/dL (33.0-37.0); MEAN PLATELET VOLUME 9.2 fL (7.2-11.7); MONO # 0.7 K/uL (0.0-0.8); MONO % 17.6 % (0.0-10.0); NEUT # 1.5 K/uL (1.8-7.0); NEUT % 41.1 % (50.0-75.0); NRBC % 0.2 % (0.0-2.0); RBC 4.76 Mil/uL (4.40-5.90); RED CELL DISTRIBUTION WIDTH 15.6 % (11.5-14.5); WHITE BLOOD COUNT 3.7 K/uL (4.8-10.8)
[2017-09-04] MEDS ORDERED: Sodium Chloride 0.9% 1,000 ML ONE (07:00)
[2017-09-04 07:28] LABS: ALB/GLOB RATIO 1.3 (1.0-2.1); ALBUMIN 4.1 g/dL (3.5-5.0); ALT/SGPT 48 U/L (21-72); AST/SGOT 39 U/L (17-59); BLOOD UREA NITROGEN 22 mg/dL (9-20); CALCIUM 8.8 mg/dl (8.6-10.4); GFR AFRICAN-AMERICAN > 60; GFR NON-AFRICAN AMERICAN > 60
[2017-09-04] MEDS ORDERED: Azithromycin 500 MG in Sodium Chloride 0.9% 250 ML IVPB STA (07:34)
[2017-09-04] MEDS ORDERED: cefTRIAXone IV 1 gm in Dextros 50 ML IVPB ONE (07:34)
--- NOTE | 2017-09-04 09:01 | RAD ---
HISTORY: SOB COMPARISON: Chest x-ray performed 02/18/17 TECHNIQUE: Chest, one view. FINDINGS: Examination limited by habitus. LUNGS: Patchy opacity at the left lung base may reflect pneumonia. Right hilar prominence. Mild pulmonary venous congestion. Please note that chest x-ray has limited sensitivity for the detection of pulmonary masses. PLEURA: No significant pleural effusion identified. No definite pneumothorax . CARDIOVASCULAR: Borderline cardiomegaly. OSSEOUS STRUCTURES: Degenerative changes. VISUALIZED UPPER ABDOMEN: Unremarkable. OTHER FINDINGS: None. IMPRESSION: Patchy opacity at the left lung base may reflect pneumonia. Mild pulmonary venous congestion. Right hilar prominence.
--- NOTE | 2017-09-04 09:02 | RAD ---
HISTORY: cough COMPARISON: Chest x-ray performed earlier the same day. TECHNIQUE: Chest PA and lateral FINDINGS: LUNGS: Mild to moderate pulmonary venous congestion. Patchy opacity at the left lung base may reflect atelectasis or pneumonia. Right hilar prominence. Please note that chest x-ray has limited sensitivity for the detection of pulmonary masses. PLEURA: No significant pleural effusion identified. No definite pneumothorax . CARDIOVASCULAR: Mild cardiomegaly. OSSEOUS STRUCTURES: Degenerative changes. VISUALIZED UPPER ABDOMEN: Unremarkable. OTHER FINDINGS: None. IMPRESSION: Mild to moderate pulmonary venous congestion. Patchy opacity at the left lung base may reflect atelectasis or pneumonia. Right hilar prominence.
[2017-09-04] MEDS ORDERED: Promethazine 12.5 mg/10 ml Syrup PO PRN (11:49)
[2017-09-04] MEDS: Pantoprazole 40 mg EC Tab PO SCH (12:57)
[2017-09-04] MEDS ORDERED: Pantoprazole 40 mg EC Tab PO ONE (12:59)
[2017-09-04] MEDS ORDERED: Iodixanol 320 MG/ML 100 ML BOTTLE IV ONE (13:34)
--- NOTE | 2017-09-04 14:33 | CP.PCM.PN ---
Subjective - Date & Time of Evaluation Date of Evaluation: 09/04/17 Time of Evaluation: 13:00 - Subjective Subjective: H&P dictated #[id number] Objective - Vital Signs/Intake and Output Vital Signs (last 24 hours): Temp Pulse Resp BP Pulse Ox 100.4 F H 85 17 100/51 L 93 L 09/04/17 07:45 09/04/17 09:24 09/04/17 09:24 09/04/17 09:24 09/04/17 10:08 - Medications Medications: Current Medications Acetaminophen (Tylenol 325mg Tab) 650 mg PO Q6 PRN PRN Reason: Fever >100.4 F Albuterol/Ipratropium (Duoneb 3 Mg/0.5 Mg (3 Ml) Ud) 3 ml INH RQ6 HECTOR Sodium Chloride (Sodium Chloride 0.9%) 1,000 mls @ 100 mls/hr IV .Q10H ONE Stop: 09/04/17 16:37 Last Admin: 09/04/17 07:02 Dose: 100 mls/hr Sodium Chloride (Sodium Chloride 0.9%) 1,000 mls @ 100 mls/hr IV .Q10H HECTOR Montelukast Sodium (Singulair) 10 mg PO DAILY [facility] Last Admin: 09/04/17 12:57 Dose: 10 mg Oseltamivir Phosphate (Tamiflu Cap) 75 mg PO BID [facility] Stop: 09/09/17 11:45 Pantoprazole Sodium (Protonix Ec Tab) 40 mg PO DAILY [facility] Last Admin: 09/04/17 12:57 Dose: 40 mg Promethazine HCl (Phenergan Syrup) 12.5 mg PO Q6 PRN PRN Reason: Cough Rosuvastatin Calcium (Crestor) 5 mg PO HS HECTOR - Labs Labs: 09/04/17 06:57 09/04/17 06:57
--- NOTE | 2017-09-04 14:49 | CT ---
CT chest with IV contrast Indication: r/o pneumonia, hilar prominence Technique: Contiguous axial images were obtained through the chest with intravenous contrast enhancement. Sagittal and coronal reconstructions were generated and reviewed. This CT exam was performed using 1 or more of the following dose reduction techniques: Automated exposure control, adjustment of the MAA and/or kV according to patient size, and/or use of iterative reconstruction technique. IV Contrast: 100 mL Visipaque Radiation dose (DLP): 761.82 MGy-cm. Comparison: Chest x-ray performed 09/04/17 Findings: Visualized portions of the inferior thyroid gland appear unremarkable. The mediastinal and hilar vascular structures appear within normal limits. Heart size appears top normal. Coronary artery calcifications. Sub cm prevascular/mediastinal lymph nodes, nonspecific. 9 mm right hilar lymph node, nonspecific. Emphysematous changes. Mild bibasilar atelectasis. No pleural effusion. No pneumothorax. Numerous right sided pulmonary nodules. For example: 4 mm right upper lobe pulmonary nodule (series 3, image 38). 2 mm subpleural right upper lobe nodule (image 43). 5 mm posterior right upper lobe nodule (image 42) 4 mm right lower lobe nodule (image 59). 5 mm right middle lobe nodule (image 59). 3 mm right middle lobe nodule (image 70) Partially imaged upper abdomen: Hepatic steatosis. Hepatomegaly. Degenerative changes of the spine. Impression: Sub cm prevascular/mediastinal lymph nodes, nonspecific. 9 mm right hilar lymph node, nonspecific. Emphysematous changes. Mild bibasilar atelectasis. Numerous right sided pulmonary nodules measuring up to 5 mm. According to 2017 Fleischner criteria, if the patient is low risk, no routine follow-up is recommended. If the patient is high risk, optional CT at 12 months is recommended. Partially imaged upper abdomen: Hepatic steatosis. Hepatomegaly.
[2017-09-04] MEDS: Sodium Chloride 0.9% 1,000 ML IV SCH ×2 (14:51→22:39)
[2017-09-04 23:08] LABS: URINE BILIRUBIN NEGATIVE (NEGATIVE); URINE BLOOD NEGATIVE (NEGATIVE); URINE CLARITY Clear (Clear); URINE COLOR Yellow (YELLOW); URINE GLUCOSE (UA) NORMAL (Normal); URINE LEUKOCYTE ESTERASE NEG Leu/uL (Negative); URINE NITRATE NEGATIVE (NEGATIVE); URINE PROTEIN NEGATIVE (NEGATIVE); URINE URIC ACID CRYSTALS OCC /hpf (<OCC)
--- NOTE | 2017-09-05 02:29 | HP ---
CHIEF COMPLAINT: Fever, cold, cough, sore throat, progressively getting worse over the past 3-4 days. HISTORY OF PRESENT ILLNESS: Mr. Devlin is a 61-year-old male with past medical history of hypertension, diabetes mellitus, hyperlipidemia, GERD, allergic rhinitis, COPD, noncompliant with his diabetic medications, came into the ED with complaints of three-day history of cold, cough, sore throat, generalized body aches, feeling feverish. With these symptoms, the patient was evaluated by Pulmonary, Dr. Leal, and he was given cough medicine. His symptoms got worse and he came into the ED. In the ED, he was found to be having influenza positive and abnormal chest x-ray. His blood pressures were low and the patient is being admitted for further management. When I examined, the patient is feeling slightly better. Denies any headache, dizziness. Complaining of feeling nauseous, cold. Denies any chest pain or shortness of breath. Denies any vomiting. Denies any abdominal pain, diarrhea or constipation. Denies any urinary complaints. Denies any leg pains or leg cramps. PAST MEDICAL HISTORY: As described diabetes mellitus, hypertension, hyperlipidemia, GERD, allergic rhinitis, COPD. PAST SURGICAL HISTORY: Denies any past surgical history. FAMILY HISTORY: Acute respiratory failure in father who at age 57. Mother from hepatitis at age 78. Brother at age 58 secondary to pancreatitis, another brother is living in his 60s. Sister has history of high blood pressure . PERSONAL HISTORY: He lives alone, unemployed. SOCIAL HISTORY: He is an ex-smoker. Denies smoking or any drug abuse. Drinks alcohol socially. REVIEW OF SYSTEMS: As described in history of present illness. All other systems reviewed and were found to be negative. ALLERGIES: NO KNOWN DRUG ALLERGIES. MEDICATIONS: Include Singulair 10 mg daily, Zyrtec 10 mg daily, Ventolin, Norvasc 10 mg daily, valsartan 80 mg daily, Protonix 40 mg daily, Lipitor 10 mg p.o. at bedtime. PHYSICAL EXAMINATION: GENERAL: A middle-aged male, lying in bed, in no acute distress. VITAL SIGNS: Blood pressure 100/51, pulse 85, respiration 17, temperature 100.4, T-max is 101.8, O2 sats 93% on room air. HEENT: Pupils equal, round, reacting to light and accommodation. Extraocular muscles are intact. No icterus. No pallor. No oral thrush. Positive pharyngeal congestion. No nasal congestion. NECK: Supple. No JVD. LUNGS: Bilateral vesicular breath sounds. Right basal rhonchi heard. CVS: S1 and S2 present. Regular. ABDOMEN: Soft, nontender. Bowel sounds present. No guarding. No rigidity. No rebound tenderness noted. [employer]: Alert, awake, oriented x3. No focal deficits noted. EXTREMITIES: No edema. Palpable peripheral pulses. LABORATORY DATA: Labs done from ED, WBC 3.7, hemoglobin 13.9, hematocrit 42.2, platelets 144. Sodium 139, potassium 4.1, chloride 98, bicarb 29, BUN 22, creatinine 1.2, glucose 103, calcium 8.8. Total bilirubin 0.6, AST 39, ALT 48, alkaline phosphatase 49, total protein 7.2, albumin 4.1. Influenza B positive. Chest x-ray consistent with mild to moderate pulmonary venous congestion, patchy opacity at the left lung base may reflect atelectasis or pneumonia, right hilar prominence. CT scan of the chest shows subcentimeter perivascular mediastinal lymph nodes, nonspecific, 9 mm right hilar lymph node, nonspecific, emphysematous changes, mild bibasilar atelectases, numerous right sided pulmonary nodules measuring up to 5 mm. Partially imaged upper abdomen shows hepatic steatosis and hepatomegaly. ASSESSMENT: A middle-aged male with past medical history of hypertension, diabetes mellitus, gastritis, hyperlipidemia, gastroesophageal reflux disease, chronic obstructive pulmonary disease, allergic rhinitis, admitted for flu-like symptoms, progressive worsening of cough, hypotension and hypoxia. 1. Influenza B positive. 2. Abnormal CT with multiple pulmonary nodules. No obvious infiltrate noted on CT chest. 3. Hypotension. 4. Hypoxia. 5. History of hypertension, now with low blood pressures. 6. History of diabetes mellitus, noncompliant with medications, not taking any medications. 7. Chronic obstructive pulmonary disease, stable. 8. Gastroesophageal reflux disease, stable. PLAN: The patient is being admitted to the medical floor. We will give Tamiflu 75 mg p.o. b.i.d. for 5 days. The patient received Rocephin and Zithromax in the ED. We will hold on antibiotics for now, give Phenergan as needed for cough. We will give DuoNeb. We will hold antihypertensive medications for now. We will repeat labs in the morning. We will add further recommendation as his clinical course progresses. Zuleyma Gresham MD
[2017-09-05] MEDS: Albuterol-Ipratrop 3 mg / 0.5 (3 ml) UD INH SCH ×2 (03:02→10:17)
[2017-09-05] MEDS ORDERED: Albuterol-Ipratrop 3 mg / 0.5 (3 ml) UD ONE ×3 (03:09→17:31)
[2017-09-05 06:29] LABS: BASO % 0.4 % (0.0-2.0); EOS # 0.2 K/uL (0.0-0.7); EOS % 4.3 % (0.0-4.0); HEMOGLOBIN 12.7 g/dL (12.0-18.0); LYMPH # 1.3 K/uL (1.0-4.3); LYMPH % 29.8 % (20.0-40.0); MEAN CELL VOLUME 88.5 fL (80.0-94.0); MEAN CORPUSCULAR HEMOGLOBIN 28.9 pg (27.0-31.0); MEAN CORPUSCULAR HGB CONC 32.7 g/dL (33.0-37.0); MEAN PLATELET VOLUME 9.2 fL (7.2-11.7); MONO # 0.5 K/uL (0.0-0.8); MONO % 11.7 % (0.0-10.0); NEUT # 2.4 K/uL (1.8-7.0); NEUT % 53.8 % (50.0-75.0); NRBC % 0.1 % (0.0-2.0); RBC 4.38 Mil/uL (4.40-5.90); RED CELL DISTRIBUTION WIDTH 15.8 % (11.5-14.5); WHITE BLOOD COUNT 4.4 K/uL (4.8-10.8)
[2017-09-05 06:41] LABS: ALB/GLOB RATIO 1.3 (1.0-2.1); ALBUMIN 3.8 g/dL (3.5-5.0); ALT/SGPT 80 U/L (21-72); AST/SGOT 62 U/L (17-59); BLOOD UREA NITROGEN 18 mg/dL (9-20); CALCIUM 7.9 mg/dl (8.6-10.4); GFR AFRICAN-AMERICAN > 60; GFR NON-AFRICAN AMERICAN > 60; HDL CHOLESTEROL 20 mg/dL (30-70)
[2017-09-05 06:52] LABS: LDL CHOLESTEROL 55 mg/dL (0-129)
[2017-09-05] MEDS: Sodium Chloride 0.9% 1,000 ML IV SCH ×2 (09:47→18:15)
[2017-09-05] MEDS: Pantoprazole 40 mg EC Tab PO SCH (10:08)
--- NOTE | 2017-09-05 10:57 | CP.PCM.PN ---
Subjective - Date & Time of Evaluation Date of Evaluation: 09/05/17 Time of Evaluation: 12:00 - Subjective Subjective: Progress note dictated # [id number] Objective - Vital Signs/Intake and Output Vital Signs (last 24 hours): Temp Pulse Resp BP Pulse Ox 98.6 F 73 14 114/63 98 09/05/17 04:24 09/05/17 10:12 09/05/17 10:12 09/05/17 10:12 09/05/17 10:12 - Medications Medications: Current Medications Acetaminophen (Tylenol 325mg Tab) 650 mg PO Q6 PRN PRN Reason: Fever >100.4 F Albuterol/Ipratropium (Duoneb 3 Mg/0.5 Mg (3 Ml) Ud) 3 ml INH RQ6 [facility] Last Admin: 09/05/17 10:17 Dose: 3 ml Sodium Chloride (Sodium Chloride 0.9%) 1,000 mls @ 100 mls/hr IV .Q10H [facility] Last Admin: 09/05/17 09:47 Dose: 100 mls/hr Montelukast Sodium (Singulair) 10 mg PO DAILY [facility] Last Admin: 09/05/17 10:08 Dose: 10 mg Oseltamivir Phosphate (Tamiflu Cap) 75 mg PO BID [facility] Stop: 09/09/17 11:45 Last Admin: 09/05/17 10:08 Dose: 75 mg Pantoprazole Sodium (Protonix Ec Tab) 40 mg PO DAILY [facility] Last Admin: 09/05/17 10:08 Dose: 40 mg Promethazine HCl (Phenergan Syrup) 12.5 mg PO Q6 PRN PRN Reason: Cough Rosuvastatin Calcium (Crestor) 5 mg PO HS [facility] Last Admin: 09/04/17 22:39 Dose: 5 mg - Labs Labs: 09/05/17 06:20 09/05/17 06:20
[2017-09-05] MEDS ORDERED: Pneumococcal 23-Valent Vaccine IM ONE (13:19)
--- NOTE | 2017-09-05 16:06 | CP.PCM.CON ---
History of Present Illness - History of Present Illness History of Present Illness: Patient is a 61 y.o M with PMH of HTN and HLD presented with fever, productive cough and SOB that started 3-4 days ago. Patient is a former smoker and quit 7- 8 years ago. Patient denies history of COPD. Review of Systems - Review of Systems All systems: reviewed and no additional remarkable complaints except (cough, chills) Past Patient History - Infectious Disease Hx of Infectious Diseases: None - Past Medical History & Family History Past Medical History?: Yes - Past Social History Smoking Status: Former Smoker - CARDIAC Hx Hypertension: Yes - PULMONARY Hx Respiratory Disorders: No - NEUROLOGICAL Hx Neurological Disorder: No - HEENT Hx HEENT Problems: No - RENAL Hx Chronic Kidney Disease: No - ENDOCRINE/METABOLIC Hx Endocrine Disorders: No Hx Diabetes Mellitus Type 2: Yes - HEMATOLOGICAL/ONCOLOGICAL Hx Blood Disorders: No - INTEGUMENTARY Hx Dermatological Problems: No - MUSCULOSKELETAL/RHEUMATOLOGICAL Hx Musculoskeletal Disorders: No Hx Falls: No - GASTROINTESTINAL Hx Gastritis: Yes - GENITOURINARY/GYNECOLOGICAL Hx Genitourinary Disorders: No - PSYCHIATRIC Hx Substance Use: No - SURGICAL HISTORY Hx Surgeries: Yes Other/Comment: colonoscopy - ANESTHESIA Hx Anesthesia: Yes Hx Anesthesia Reactions: No Meds Allergies/Adverse Reactions: Allergies Allergy/AdvReac Type Severity Reaction Status Date / Time No Known Allergies Allergy Verified 02/18/17 08:12 - Medications Medications: Current Medications Acetaminophen (Tylenol 325mg Tab) 650 mg PO Q6 PRN PRN Reason: Fever >100.4 F Albuterol/Ipratropium (Duoneb 3 Mg/0.5 Mg (3 Ml) Ud) 3 ml INH RQ6 [facility] Last Admin: 09/05/17 10:17 Dose: 3 ml Sodium Chloride (Sodium Chloride 0.9%) 1,000 mls @ 100 mls/hr IV .Q10H [facility] Last Admin: 09/05/17 09:47 Dose: 100 mls/hr Montelukast Sodium (Singulair) 10 mg PO DAILY [facility] Last Admin: 09/05/17 10:08 Dose: 10 mg Oseltamivir Phosphate (Tamiflu Cap) 75 mg PO BID [facility] Stop: 09/09/17 11:45 Last Admin: 09/05/17 10:08 Dose: 75 mg Pantoprazole Sodium (Protonix Ec Tab) 40 mg PO DAILY [facility] Last Admin: 09/05/17 10:08 Dose: 40 mg Pneumococcal Polyvalent Vaccine (Pneumovax 23 Vaccine) 0.5 ml IM .ONCE ONE Stop: 09/06/17 10:01 Promethazine HCl (Phenergan Syrup) 12.5 mg PO Q6 [facility] Rosuvastatin Calcium (Crestor) 5 mg PO HS [facility] Last Admin: 09/04/17 22:39 Dose: 5 mg Physical Exam - Head Exam Head Exam: ATRAUMATIC, NORMOCEPHALIC - Eye Exam Eye Exam: Normal appearance - ENT Exam ENT Exam: Mucous Membranes Moist - Neck Exam Neck exam: Positive for: Normal Inspection - Respiratory Exam Respiratory Exam: Rhonchi - GI/Abdominal Exam GI & Abdominal Exam: Diminished Bowel Sounds Results - Vital Signs Recent Vital Signs: Last Vital Signs Temp 98.6 F 09/05/17 04:24 Pulse 73 09/05/17 10:12 Resp 14 09/05/17 10:12 BP 114/63 09/05/17 10:12 Pulse Ox 98 09/05/17 10:12 - Labs Result Diagrams: 09/05/17 06:20 09/05/17 06:20 Labs: Laboratory Results - last 24 hr 09/04/17 09/05/17 09/05/17 22:55 06:20 06:20 WBC 4.4 L RBC 4.38 L Hgb 12.7 Hct 38.7 MCV 88.5 MCH 28.9 MCHC 32.7 L RDW 15.8 H Plt Count 127 L MPV 9.2 Neut % (Auto) 53.8 Lymph % (Auto) 29.8 [place] % (Auto) 11.7 H Eos % (Auto) 4.3 H Baso % (Auto) 0.4 Neut # (Auto) 2.4 Lymph # (Auto) 1.3 [place] # (Auto) 0.5 Eos # (Auto) 0.2 Baso # (Auto) 0.0 Sodium 137 Potassium 4.2 Chloride 102 Carbon Dioxide 26 Anion Gap 13 BUN 18 Creatinine 0.9 Est GFR ( Amer) > 60 Est GFR (Non-Af Amer) > 60 Random Glucose 123 H Hemoglobin A1c Calcium 7.9 L Total Bilirubin 0.5 AST 62 H D ALT 80 H D Alkaline Phosphatase 49 Total Protein 6.9 Albumin 3.8 Globulin 3.1 Albumin/Globulin Ratio 1.3 Triglycerides 117 D Cholesterol 101 LDL Cholesterol Direct 55 HDL Cholesterol 20 L Urine Color Yellow Urine Clarity Clear Urine pH 5.0 Ur Specific [place] 1.051 H Urine Protein Negative Urine Glucose (UA) Normal Urine Ketones Negative Urine Blood Negative Urine Nitrate Negative Urine Bilirubin Negative Urine Urobilinogen 2.0 Ur Leukocyte Esterase Neg Urine WBC (Auto) 1 Urine RBC (Auto) 8 H Uric Acid Crystals Occ H 09/05/17 06:20 WBC RBC Hgb Hct MCV MCH MCHC RDW Plt Count MPV Neut % (Auto) Lymph % (Auto) [place] % (Auto) Eos % (Auto) Baso % (Auto) Neut # (Auto) Lymph # (Auto) [place] # (Auto) Eos # (Auto) Baso # (Auto) Sodium Potassium Chloride Carbon Dioxide Anion Gap BUN Creatinine Est GFR ( Amer) Est GFR (Non-Af Amer) Random Glucose Hemoglobin A1c 6.6 H Calcium Total Bilirubin AST ALT Alkaline Phosphatase Total Protein Albumin Globulin Albumin/Globulin Ratio Triglycerides Cholesterol LDL Cholesterol Direct HDL Cholesterol Urine Color Urine Clarity Urine pH Ur Specific [place] Urine Protein Urine Glucose (UA) Urine Ketones Urine Blood Urine Nitrate Urine Bilirubin Urine Urobilinogen Ur Leukocyte Esterase Urine WBC (Auto) Urine RBC (Auto) Uric Acid Crystals Assessment & Plan (1) Influenza-like illness Status: Acute Comment: Patient is a 61 y.o M with PMH of HTN and HLD presented with fever, productive cough and SOB most likely due to influenza. -Tested positive for Influenza B. -Tamiflu 75 mg po BID for 5 days. -CT chest showed sub cm prevascular/mediastinal lymph nodes, nonspecific. 9mm right hilar lymph node, nonspecific. Empysematous changes, mild bibasilar atelectasis. Numerous right sided pulmonary nodules measuring up to 5mm. -Phenergan for cough (2) COPD (chronic obstructive pulmonary disease) Status: Acute Comment: patient with long history of smoking underlying COPD cannot be ruled out. Continue nebulizer treatment and pulmonary function test as out pt
[2017-09-05] MEDS: Promethazine 12.5 mg/10 ml Syrup PO SCH (18:37)
--- NOTE | 2017-09-05 21:17 | CARD ---
APPROVED REPORT EKG Measurement Heart [id number] <Conclusion> Normal sinus rhythm Left axis deviation Minimal voltage criteria for LVH, may be normal variant Abnormal ECG
--- NOTE | 2017-09-05 23:57 | PN ---
DATE: 09/05/2017 SUBJECTIVE: The patient was seen and examined at bedside. The patient is still complaining of generalized body aches and persistent cough and not feeling well. Denies any new complaints. PHYSICAL EXAMINATION: GENERAL: Middle-aged male, lying in bed, in no acute distress. VITAL SIGNS: Blood pressure 125/77, pulse 84, respirations 16, temperature 98.6 degrees Fahrenheit, and O2 saturations 98% on room air. HEENT: Pupils are equal, round, and reacting to light and accommodation. Extraocular muscles intact. No icterus. No pallor. No oral thrush. No pharyngeal congestion. NECK: Supple. No JVD. LUNGS: Bilateral vesicular breath sounds, bilateral basal rhonchi heard. CVS: S1 and S2 present. Regular. ABDOMEN: Soft, nontender. Bowel sounds present. No guarding. No rigidity. No rebound tenderness noted. BOBBIN DUMPER: Alert, awake, oriented x3. No focal deficits noted. EXTREMITIES: No edema, palpable peripheral pulses. MEDICATIONS: Include Tylenol 325 mg as needed, DuoNebs, Singulair 10 mg daily, Tamiflu 75 mg b.i.d., Protonix 40 mg daily, Phenergan cough syrup as needed, Crestor, and normal saline at 100 mL an hour. LABS: From this morning, WBC 4.4, hemoglobin 12.7, hematocrit 38.7, platelets 127. Sodium 137, potassium 4.2, chloride 102, bicarb 26, BUN 18, creatinine 0.9, glucose 123, hemoglobin A1c is 6.6, calcium 7.9, AST 62, ALT 80, alkaline phosphatase 49, total protein 6.9, albumin 3.8. Legionella negative. Blood cultures pending so far. ASSESSMENT AND PLAN: Middle-aged male with history of hypertension, diabetes mellitus, chronic obstructive pulmonary disease, gastroesophageal reflux disease, noncompliant with his medications, admitted for influenza B positive with viral syndrome and abnormal CT of the chest consistent with multiple pulmonary nodules and emphysematous changes. We will continue with Tamiflu and nebulizer treatments and Phenergan for cough. We will continue with his home medication. Pulmonary consult appreciated. We will add further recommendation as his clinical course progresses. Zuleyma Gresham MD [facility] # [id number]
[2017-09-06] MEDS: Promethazine 12.5 mg/10 ml Syrup PO SCH ×3 (00:45→11:25)
[2017-09-06] MEDS: Albuterol-Ipratrop 3 mg / 0.5 (3 ml) UD INH SCH ×2 (01:14→08:07)
[2017-09-06 02:05] VITALS: RESP 20
[2017-09-06] MEDS: Sodium Chloride 0.9% 1,000 ML IV SCH (02:35)
[2017-09-06 08:13] VITALS: BP 138/84; TEMP 97.8
[2017-09-06 08:38] VITALS: O2SAT 96
[2017-09-06] MEDS: Pantoprazole 40 mg EC Tab PO SCH (09:52)
--- NOTE | 2017-09-06 09:55 | CP.PCM.PN ---
Subjective - Date & Time of Evaluation Date of Evaluation: 09/06/17 Time of Evaluation: 10:00 - Subjective Subjective: Discharge summary dictated # [id number] Objective - Vital Signs/Intake and Output Vital Signs (last 24 hours): Temp Pulse Resp BP Pulse Ox 97.8 F 78 20 138/84 96 09/06/17 07:00 09/06/17 07:00 09/06/17 07:00 09/06/17 07:00 09/06/17 08:35 Intake and Output: 09/06/17 09/06/17 06:59 18:59 Intake Total 1600 Output Total 2300 Balance -700 - Medications Medications: Current Medications Acetaminophen (Tylenol 325mg Tab) 650 mg PO Q6 PRN PRN Reason: Fever >100.4 F Albuterol/Ipratropium (Duoneb 3 Mg/0.5 Mg (3 Ml) Ud) 3 ml INH RQ6 [facility] Last Admin: 09/06/17 08:07 Dose: 3 ml Sodium Chloride (Sodium Chloride 0.9%) 1,000 mls @ 100 mls/hr IV .Q10H [facility] Last Admin: 09/06/17 02:35 Dose: 100 mls/hr Montelukast Sodium (Singulair) 10 mg PO DAILY [facility] Last Admin: 09/06/17 09:52 Dose: 10 mg Oseltamivir Phosphate (Tamiflu Cap) 75 mg PO BID [facility] Stop: 09/09/17 11:45 Last Admin: 09/06/17 09:52 Dose: 75 mg Pantoprazole Sodium (Protonix Ec Tab) 40 mg PO DAILY [facility] Last Admin: 09/06/17 09:52 Dose: 40 mg Pneumococcal Polyvalent Vaccine (Pneumovax 23 Vaccine) 0.5 ml IM .ONCE ONE Stop: 09/06/17 10:01 Promethazine HCl (Phenergan Syrup) 12.5 mg PO Q6 [facility] Last Admin: 09/06/17 05:49 Dose: 12.5 mg Rosuvastatin Calcium (Crestor) 5 mg PO HS [facility] Last Admin: 09/05/17 22:03 Dose: 5 mg - Labs Labs: 09/05/17 06:20 09/05/17 06:20
[2017-09-06] MEDS ORDERED: Pneumococcal 23-Valent Vaccine IM ONE (10:00)
[2017-09-06 11:52] VITALS: PULSE 89
--- NOTE | 2017-09-06 15:55 | CP.PCM.PN ---
Subjective - Date & Time of Evaluation Date of Evaluation: 09/06/17 Time of Evaluation: 10:20 - Subjective Subjective: Patient was seen and evaluated. He states that generalized body aches has been improving. Patient reports decreased shortness of breath and cough. He has been tolerating diet, but would like less "sugary food" because he is pre-diabetic. He denies fever, chills, nausea, vomiting. Influenza-like illness: -Tested positive for Influenza B -Tamiflu 75 mg po BID for 5 days -CT chest from 09/04 showed sub cm prevascular/mediastinal lymph nodes, nonspecific. 9mm right hilar lymph node, nonspecific. Empysematous changes, mild bibasilar atelectasis. Numerous right sided pulmonary nodules measuring up to 5mm -Phenergan for cough COPD: -CT chest showed emphysematous changes, mild bibasilar atelectasis -Continue Duoneb treatments -PFT as outpatient Objective - Vital Signs/Intake and Output Vital Signs (last 24 hours): Temp Pulse Resp BP Pulse Ox 97.8 F 89 20 138/84 96 09/06/17 07:00 09/06/17 11:06 09/06/17 07:00 09/06/17 07:00 09/06/17 11:00 Intake and Output: 09/06/17 09/06/17 06:59 18:59 Intake Total 1600 400 Output Total 2300 1200 Balance -700 -800 - Labs Labs: 09/05/17 06:20 09/05/17 06:20 Assessment and Plan (1) Influenza-like illness Status: Acute (2) COPD (chronic obstructive pulmonary disease) Status: Acute
--- NOTE | 2017-09-08 01:25 | DS ---
DISCHARGE DIAGNOSES: Influenza, chronic obstructive pulmonary disease, hypertension, diabetes mellitus, gastritis. HISTORY OF PRESENT ILLNESS: Mr. Devlin is a 61-year-old male with past medical history of hypertension, diabetes mellitus, hyperlipidemia, GERD, allergic rhinitis, COPD admitted for flu-like symptoms. In the ED, the patient was found to be having influenza B positive and the patient is being admitted for further management. On the day of discharge, the patient was feeling much better. Denied any headache or dizziness. Denied any chest pain, shortness of breath or wheezing. Denied any nausea, vomiting, abdominal pain, diarrhea or constipation. Denied any urinary complaints. Denied any neck pains or leg cramps. Denied any other neurological symptoms. All other systems reviewed and were found to be negative. PHYSICAL EXAMINATION: GENERAL: On examination, middle-aged male lying in bed in no acute distress. VITAL SIGNS: Blood pressure 138/84, pulse 78, respirations 20, temperature 97.8 degrees Fahrenheit, O2 saturations 95%. HEENT: Pupils equal, round, and reacting to light and accommodation. Extraocular muscles are intact. No icterus. No pallor. No oral thrush. No pharyngeal congestion. NECK: Supple. No JVD. No thyromegaly. CHEST: Moving equally bilaterally on respiration. LUNGS: Bilateral vesicular breath sounds. No wheezing. No rhonchi. CVS: S1, S2 present, regular. ABDOMEN: Soft and nontender. Bowel sounds present. No guarding. No rigidity. No rebound tenderness noted. LOG CUT OFF SAWYER: Alert, awake, and oriented x3. No focal deficits noted. EXTREMITIES: No edema. LABORATORY DATA: Labs done 09/05/2017; WBC 4.4, hemoglobin 12.7, hematocrit 38.7, platelets 127. Sodium 137, potassium 4.2, chloride 102, bicarbonate 36, BUN 18, creatinine 0.9, glucose 123, hemoglobin A1c 6.6, calcium 7.9, AST 62, ALT 80. Influenza B positive. Legionella negative. CT of the chest consistent with emphysematous changes with subcentimeter multiple nodules. No change from the prior CT. HOSPITAL COURSE: The patient was admitted to the hospital for flu-like symptoms and influenza B positive, as patient's blood pressures were running low, patient was started on IV fluids, started on Tamiflu, and the patient was started on nebulizer treatment and cough syrup. The patient underwent CT of the chest did not show any infiltrate other than multiple subcentimeter nodules throughout the lungs and emphysematous changes. The patient was evaluated by Pulmonary. The patient's symptoms improved with the Tamiflu. As the patient is otherwise hemodynamically stable, the patient is being discharged. I advised the patient to continue with Tamiflu for total of 5 days and advised to call me or return to the ED if any worsening of symptoms. CONDITION UPON DISCHARGE: The patient is alert, awake and oriented x 3 and hemodynamically stable at the time of discharge. DISCHARGE MEDICATIONS: Please refer to medication reconciliation sheet. DISCHARGE DIET: Low-sodium, low-cholesterol, 18,000 calorie ADA diet. ACTIVITY: As tolerated. DISCHARGE INSTRUCTIONS: Follow up with PMD. Follow up with Pulmonary. Zuleyma Gresham MD
== END 2017-09-06 12:21 | disposition home or self-care (01) ==
LOC: C.ER 05:32 → C.9E 08:56 → C.6T 09-05 16:32
PROVIDERS: ADMIT Internal Medicine; ATTEND Internal Medicine
DX: J10.1 Influenza due to other identified influenza virus with other respiratory manifestations (principal); J44.9 Chronic obstructive pulmonary disease, unspecified; I10 Essential (primary) hypertension; E78.5 Hyperlipidemia, unspecified; E11.9 Type 2 diabetes mellitus without complications; J98.11 Atelectasis; K21.9 Gastro-esophageal reflux disease without esophagitis
CPT/HCPCS: 71045; 71046; 71260; 80053; 80061; 81001; 82803; 82948; 83036; 85025; 87040; 87070; 87086; 87449; 87804; 93005; 94640; 96361; 96365; 96367; 96375; 99285; G0378; J0456; J0696; J1885; J7040; J7050; Q9967